=== PATIENT | female | born 1950 | race Caucasian/White ===

== ENCOUNTER → 2021-06-16 | Outpatient (CLI) | payer MEDICARE ==
[~2021-06-16] MED LIST: ALPR.5 PO; ASCO500 PO; ASPI325 PO; ASPI81CH PO; Aspirin EC325 MG PO; BIOTIN2500 MCG PO; CALCA500CH PO; CHOL10002 PO; CRANBERRY250 MG PO; FISH1000 PO; HYDMOR2 PO; MULTIVITAMIN PO; OXYACE5T PO; TRAM50 PO; Vitamin E400 UNI4 PO
== END | disposition home or self-care (01) ==
LOC: LAB SHORT 15:11 → LAB 15:11
DX: D48.5 Neoplasm of uncertain behavior of skin (principal)
CPT/HCPCS: 88305

== ENCOUNTER → 2021-11-04 | Outpatient (CLI) | payer MEDICARE ==
[2021-11-05 09:31] LABS: Candida species (DNA Probe) Negative (NEGATIVE); G. vaginalis (DNA Probe) Negative (NEGATIVE); T. vaginalis (DNA Probe) Negative (NEGATIVE)
== END | disposition home or self-care (01) ==
LOC: LAB 16:15 → LAB SHORT 16:15
PROVIDERS: Advanced Practice Midwife
DX: N76.0 Acute vaginitis (principal)
CPT/HCPCS: 87480; 87510; 87660

== ENCOUNTER → 2022-10-29 | Outpatient (CLI) | payer MEDICARE ==
[2022-10-29 17:16] LABS: Source, Urine Clean Catch
[2022-10-29 18:34] LABS: Bilirubin, Urine Neg (Neg); Blood, Urine 1+ (Neg); Color, Urine Yellow (P-Yellow); Glucose Qualitative, Urine Neg (Neg); Ketones, Urine Neg (Neg); Leukocyte Esterase, Urine 1+ (Neg); Nitrite, Urine Neg (Neg); Protein, Urine Neg (Neg); Specific Gravity, Urine 1.015 (1.003-1.022); Urobilinogen, Urine NORM (Normal)
[2022-10-29 18:41] LABS: Appearance, Urine Hazy (Clear)
[2022-10-29 18:43] LABS: Bacteria Mod /hpf; Mucus Light (0-Heavy); Squamous Epithelial Cells Rare /hpf (Few); White Blood Cells, Urine 0-2 /hpf (0-5)
== END | disposition home or self-care (01) ==
LOC: LAB SHORT 17:12 → LAB 17:12
PROVIDERS: Internal Medicine
DX: R31.29 Other microscopic hematuria (principal)
CPT/HCPCS: 81001; 87086

== ENCOUNTER 2024-05-02 18:22 | Inpatient (IN) | payer MEDICARE ==
[~2024-05-02] VITALS: Ht 165.1 cm; Wt 71.3 kg
[2024-05-02] MEDS ORDERED: OxyCODONE HCL 5 MG TAB PO ONE (18:35)
[2024-05-02] MEDS ORDERED: TRAZ50 PO (19:32)
[2024-05-02] MEDS ORDERED: QUETIAPINE FUMA5012 PO (19:33)
[2024-05-02] MEDS ORDERED: OMEP20ER PO (19:33)
[2024-05-02] MEDS ORDERED: HYDCHL25 PO (19:34)
[2024-05-02] MEDS ORDERED: ROSUVASTATIN CA10 MG (19:34)
[2024-05-02] MEDS ORDERED: DULOXETINE HCL60 M1 PO (19:34)
[2024-05-02] MEDS ORDERED: Methocarbamol 500 MG Tab PO ONE (20:05)
[2024-05-02 20:26] LABS: BASOPHILS PERCENT AUTO 1 % (0-2); EOSINOPHILS ABSOLUTE AUTO 0.33 K/mm3 (0.00-0.68); EOSINOPHILS PERCENT AUTO 3 % (0-6); Hematocrit 36.6 % (33.0-51.0); Hemoglobin 11.7 g/dL (11.5-16.0); IMMATURE GRAN ABSOLUTE AUTO 0.05 K/mm3 (0.00-0.10); IMMATURE GRAN PERCENT AUTO 1 % (0-1); LYMPHOCYTES ABSOLUTE AUTO 1.44 K/mm3 (0.84-5.20); LYMPHOCYTES PERCENT AUTO 14 % (21-46); MONOCYTES ABSOLUTE AUTO 0.55 K/mm3 (0.16-1.47); MONOCYTES PERCENT AUTO 5 % (4-13); Mean Corpuscular HGB 26.2 pg (26.0-34.0); Mean Corpuscular Volume 82 fL (80-100); NEUTROPHILS ABSOLUTE AUTO 7.95 K/mm3 (1.96-9.15); NEUTROPHILS PERCENT AUTO 76 % (41-73); Platelet Count 350 K/mm3 (150-400); RDW Coefficient Variation 15.1 % (11.7-14.2); RDW Standard Deviation 45.3 fL (35.1-46.3); Red Blood Cell Count 4.46 M/mm3 (3.80-5.20); White Blood Cell Count 10.42 K/mm3 (4.00-11.30)
[2024-05-02] MEDS ORDERED: NS 1,000 ML IV SCH (20:40)
[2024-05-02 20:43] LABS: International Normalized Ratio 1.01; Prothrombin Time Results 10.8 Sec (9.7-11.5)
[2024-05-02] MEDS ORDERED: HYDROmorphone HCl/Pf 1MG SYR IV PRN ×2 (20:45→20:50)
[2024-05-02] MEDS ORDERED: FLU VACC TS2024-25(6MOS UP)/PF 45 MCG/0.5 ML SYRINGE IM SCH (20:45)
[2024-05-02] MEDS ORDERED: Ondansetron HCl 2 MG / ML 2ML Vial IV PRN (20:45)
[2024-05-02] MEDS ORDERED: Metoclopramide HCl 5MG / ML 2ML Vial IV PRN (20:45)
[2024-05-02 20:47] LABS: Albumin/Globulin Ratio 0.8 (0.8-1.8); Bilirubin, Total 0.3 mg/dL (0.1-1.0); Bun/Creatinine Ratio 20.3 (12.0-20.0); Calcium, Blood 9.6 mg/dL (8.5-10.1); Creatinine, Blood 0.79 mg/dL (0.40-1.00); Potassium, Blood 4.3 mmol/L (3.5-5.5)
[2024-05-02] MEDS ORDERED: OxyCODONE 5 mg/Acetamin 325 mg TABLET PO PRN (20:50)
[2024-05-02] MEDS ORDERED: TraZODone HCl 50 MG Tab PO PRN (20:50)
[2024-05-02] MEDS ORDERED: Docusate Sodium 100 MG Cap PO SCH (21:00)
[2024-05-02] MEDS ORDERED: Sennosides 8.6 MG Tab PO SCH (21:00)
[2024-05-02 21:57] VITALS: BP 153/79
[2024-05-02] MEDS ORDERED: NAPR220 PO (21:59)
[2024-05-02] MEDS ORDERED: MISO100 PO (22:05)
[2024-05-02] MEDS ORDERED: FLONASE ALLERG9.9 M2 (22:09)
[2024-05-02] MEDS ORDERED: meloxicam PO (22:10)
[2024-05-03] VITALS (37 sets, daily range): BP systolic 112–1160; BP diastolic 60–122
--- NOTE | 2024-05-03 05:41 | NUR ---
SHIFT SUMMARY PT ER ADMIT THIS SHIFT FOR LEFT HIP FRACTURE AFTER A GLF. PT HAD BEEN HAVING PAIN FOR A FEW DAYS AT HOME BEFORE DECIDING TO COME IN. PT REPORTS THAT SHE FEEL ON WEDNESDAY LAST WEEK. PAIN CONTROLLED WITH MEDS PER EMAR. PLAN IS FOR ORTHO CONSULT TODAY. PT HAS BEEN NPO SINCE MIDNIGHT. ADMISSION COMPLETE. BED IN LOWEST POSITION, CALL LIGHT WITHIN REACH.
[2024-05-03] MEDS ORDERED: Omeprazole 20 MG CapCR PO SCH (06:00)
[2024-05-03] MEDS ORDERED: Lactated Ringer's 1,000 ML IV SCH (11:00)
--- NOTE | 2024-05-03 11:35 | NUR ---
History, Chart, Medications and Allergies reviewed before start of procedure. Pre-Op teaching done. Pt verbalizes understanding. Patient confirms NPO status and agrees with scheduled surgery. PT BELONGINGS LEFT IN SURG FLOOR RM.
[2024-05-03] MEDS ORDERED: FentaNYL Citrate 50 MCG/ML 2 ML Injection ONE ×2 (11:48→13:41)
[2024-05-03] MEDS ORDERED: propofoL 20 ML IV ONE (11:48)
[2024-05-03] MEDS ORDERED: Rocuronium Bromide 10 MG/ML 5ML Injection IV ONE (11:50)
[2024-05-03] MEDS ORDERED: Tranexamic Acid 1,000 MG in NS 100 ML IV SCH (11:55)
[2024-05-03] MEDS ORDERED: CeFAZolin Sodium 2,000 MG in NS 100 ML IV SCH ×2 (11:55→20:30)
[2024-05-03] MEDS ORDERED: CeFAZolin Sodium 2,000 MG VIAL ONE (12:16)
[2024-05-03] MEDS ORDERED: Ondansetron HCl 2 MG / ML 2ML Vial ONE (12:19)
[2024-05-03] MEDS ORDERED: Dexamethasone Sod Phos 10 MG/ML 1ML VIAL ONE (12:19)
[2024-05-03] MEDS ORDERED: Tranexamic Acid 100 ML IV SCH (12:20)
[2024-05-03] MEDS ORDERED: ePHEDrine Sulfate 50 MG/ML 1ML Injection ONE (12:25)
[2024-05-03] MEDS ORDERED: Ketamine HCl 100 MG / ML 5ML Vial ONE (12:28)
[2024-05-03] MEDS ORDERED: Phenylephrine HCl 100 MCG/ML-NS 10MLSYR (1MG/10ML) ONE (12:31)
[2024-05-03] MEDS ORDERED: FentaNYL Citrate 50 MCG/ML 2 ML Injection IV PRN (12:50)
[2024-05-03] MEDS ORDERED: Metoclopramide HCl 5MG / ML 2ML Vial IV PRN (12:50)
[2024-05-03] MEDS ORDERED: HYDROmorphone HCl/Pf 1MG SYR IV PRN ×2 (12:55)
[2024-05-03] MEDS ORDERED: Ketorolac Tromethamine 30mg Vial IV PRN (13:05)
[2024-05-03] MEDS ORDERED: Sugammadex Sodium 200 MG/2ML SDV (100 MG/ML) ONE (13:21)
[2024-05-03] MEDS ORDERED: Bupivacaine 0.5% HCl 5 MG/ML 30MLVIAL ONE (13:22)
[2024-05-03] MEDS ORDERED: Bupivacaine 0.5% HCl 5 MG/ML 30MLVIAL INJ ONE (13:28)
[2024-05-03] MEDS ORDERED: Ketorolac Tromethamine 30mg Vial ONE (13:53)
[2024-05-03] MEDS ORDERED: HYDROmorphone HCl/Pf 1MG SYR ONE ×3 (13:53→14:32)
[2024-05-03] MEDS ORDERED: HYDROmorphone HCl/Pf 1MG SYR IV ONE (14:40)
--- NOTE | 2024-05-03 17:48 | NUR ---
PT ARRIVED BACK TO RM 216 FROM PACU AT APPROXIMATELY 1630. PT ALERT/ORIENTED. PAIN MANAGED. JAYA WRAP IN PLACE OVER PT'S HIPS FOR COMPRESSION. PER TIMI MARTÍNEZ RN, THE WRAP CAN BE REMOVED AT 1999 OR 2099. DRESSING INTACT. PT ABLE TO MOVE ALL EXTREMITIES.
--- NOTE | 2024-05-03 17:51 | NUR ---
SHIFT SUMMARY PT IS POD#0 FROM L HIP REPAIR. PAIN MANAGED WITH PO PAIN MEDICATION. PT TOLERATING PO. SHE CALLS APPROPRIATELY. CALL LIGHT WITHIN REACH.
[2024-05-03] MEDS ORDERED: OxyCODONE 5 mg/Acetamin 325 mg TABLET PO PRN (18:29)
[2024-05-03] MEDS ORDERED: QUEtiapine Fumarate 50 MG TAB PO SCH (21:00)
[2024-05-03] MEDS ORDERED: Fluticasone 0.05% Nasal Spray SCH (21:00)
[2024-05-03] MEDS ORDERED: Rosuvastatin Calcium 10 MG Tab PO SCH (21:00)
--- NOTE | 2024-05-04 03:49 | NUR ---
SHIFT SUMMARY POD 1 LEFT HIP PINNNING. JAYA WRAP/PRESSURE DRESSING REMOVED DIRECTED. SCANT AMOUNT OF SS DRAINAGE NOTED ON AQUACEL. ICE TO LEFT HIP TOLERATED. PAIN MANAGED WITH 10MG PERCOCET Q 4HRS. ABX AND IVF INFUSED PER ORDERS. CARPENTER TO GRAVITY DRAIN. SATISH PO INTAKE, DENIES N/V. AWAITING OOB S/P . PLAN TO WORK WITH THERAPY TODAY. PT CURRENTLY RESTING IN BED WITH EYES CLOSED, RESP EVEN/UNLABORED AND CALL LIGHT IN REACH. PT A/OX4 WITH VSS AND ABLE TO MAKE NEEDS KNOWN. WILL GIVE REPORT TO ONCOMING RN.
[2024-05-04 04:52] VITALS: BP 127/66
[2024-05-04 07:40] VITALS: BP 141/70
[2024-05-04] MEDS ORDERED: DULoxetine HCL 60 MG Capsule DR PO SCH (09:00)
[2024-05-04] MEDS ORDERED: HydroCHLOROthiazide 25 mg Tab PO SCH (09:00)
[2024-05-04] MEDS ORDERED: Polyethylene Glycol 3350 17 gm PO SCH (09:00)
--- NOTE | 2024-05-04 09:00 | NUR ---
DR. MARCO EGAN PT REPORTED HAVING MUSCLE SPASMS, PER DR. LARA OK TO USE HEAT/MASSAGE FOR SPASMS.
[2024-05-04 14:14] VITALS: BP 163/70
[2024-05-04] MEDS ORDERED: Percocet 5-3251 EACH PO (14:29)
[2024-05-04] MEDS ORDERED: MIRALAX17 GM PO (14:30)
[2024-05-04 16:39] VITALS: BP 159/90
--- NOTE | 2024-05-04 17:44 | NUR ---
DISCHARGE PT WAS PROVIDED WITH WRITTEN AND VERBAL DISCHARGE INSTRUCTION, PT REPORTED UNDERSTANDING. PAIN MANAGED AT TIME OF DISCHARGE. PT IS AWARE SHE NEED TO REACH OUT TO HER PAIN MANAGMENT DOCTOR FOR ANY PAIN MEDICATION NEEDS, PT VERBALIZED UNDERSTANDING. PRESCRIPTION PROVIDED FOR PHYSICAL THERAPY, PT IS AWARE SHE WILL NEED TO MAKE ARRAGEMENTS. PT ASSISTED OUT IN A W/C AT 1721.
== END 2024-05-04 17:22 | disposition home or self-care (01) | DRG 482 ==
LOC: ER 18:22 → SURS 20:40
PROVIDERS: Orthopaedic Surgery Sports Medicine; Student in an Organized Health Care Education/Training Program; ADMIT Student in an Organized Health Care Education/Training Program
PROC: 0QS704Z Reposition Left Upper Femur with Internal Fixation Device, Open Approach (ICD-10-PCS; principal; 2024-05-03 12:30)
DX: S72.002A Fracture of unspecified part of neck of left femur, initial encounter for closed fracture (principal); I10 Essential (primary) hypertension; E78.5 Hyperlipidemia, unspecified; K21.9 Gastro-esophageal reflux disease without esophagitis; F32.9 Major depressive disorder, single episode, unspecified; M25.552 Pain in left hip; Z79.899 Other long term (current) drug therapy; Z88.0 Allergy status to penicillin; Z88.8 Allergy status to other drugs, medicaments and biological substances; Z88.1 Allergy status to other antibiotic agents; W18.09XA Striking against other object with subsequent fall, initial encounter; R33.9 Retention of urine, unspecified
CPT/HCPCS: 72192; 73502; 80053; 85025; 85610; 85730; 93005; 93010; 97116; 97162; 97165; 97530; 97535; 99284-25; A9270; C1713; C1769; J0690; J1100; J1171; J1885; J2371; J2405; J2704; J3010; J7030; J7120